=== PATIENT | female | born 2000 | race American Indian/Alaskan Native ===

== ENCOUNTER 2018-11-06 13:41 | Emergency (ER) | payer MEDICAID, OTHER ==
--- NOTE | 2018-11-06 13:50 | Emergency Department Report ---
Blank Doc - Documentation Documentation: 18 yo female reports that she miscarried 2 days ago and started period 2 days . denies any N?V?D. Denies urinary symptoms.Denies fever or chills ABD: nttp. his initial assessment diagnostic orders/clinical plan/treatment (s) is/Are subject change based on patient's health status, clinical progression and re- assessment by fellow clinical providers in the ED. Further treatment and work-up at subsequent clinical providers discetion. Patient/guardians urged not to elope from s their condition may be serious if not clinically assessed and managed. Inital order include:labd
[2018-11-06 14:14] LABS: Hematocrit 38.7 % (30.3-42.9); Hemoglobin 13.2 gm/dl (10.1-14.3); Mean Corpuscular HGB Conc 34 % (30-34); Mean Corpuscular Volume 87 fl (79-97); Platelet Count 338 K/mm3 (140-440); Red Blood Count 4.47 M/mm3 (3.65-5.03)
[2018-11-06 14:27] LABS: Bilirubin,Urine NEG (Negative); Blood,Urine LG (Negative); Color,Urine Yellow (Yellow); Mucus,Urine 1+ /HPF
[2018-11-06 14:30] LABS: WBC,Urine < 1.0 /HPF (0.0-6.0)
[2018-11-06 15:25] LABS: Total Cells Counted 100
[2018-11-06 15:26] LABS: Platelet Estimate Consistent w Auto; RBC Morphology Normal
--- NOTE | 2018-11-06 16:49 | Emergency Department Report ---
HPI - General Chief Complaint: Vaginal Bleeding Time Seen by Provider: 11/06/18 13:47 - HPI HPI: 18-year-old -Citizen Of [place] female presents to the emergency department with a complaint of a 2 day history of severe abdominal and pelvic cramping and a one- day history of vaginal bleeding. This may be the patient's menstrual cycle but she says it is atypical for her as she usually does not have any cramping or discomfort prior to the bleeding. Her last menstrual cycle prior to this was at the end of September. She says she is going through about 3-4 pads per day. She has not taken anything for her symptoms prior to arrival. She denies any fever, nausea, vomiting. ED Past Medical Hx - Past Medical History Previous Medical History?: No - Surgical History Past Surgical History?: No - Social History Smoking Status: Never Smoker Substance Use Type: None - Medications Home Medications: Home Medications Medication Instructions Recorded Confirmed Last Taken Type Ibuprofen [Motrin] 800 mg PO Q8HR PRN #30 tablet 11/07/15 Unknown Rx methOCARBAMOL [Robaxin TAB] 500 mg PO BID #14 tab 11/07/15 Unknown Rx Ibuprofen 600 mg PO Q8H PRN #20 tablet 11/06/18 Unknown Rx ED Review of Systems ROS: Stated complaint: MISCARRIAGE Other details as noted in HPI Comment: All other systems reviewed and negative Constitutional: denies: chills, fever Eyes: denies: eye pain, vision change ENT: denies: ear pain, throat pain Respiratory: denies: cough, shortness of breath Cardiovascular: denies: chest pain, palpitations Gastrointestinal: abdominal pain. denies: nausea, vomiting Genitourinary: abnormal menses. denies: dysuria, discharge Musculoskeletal: denies: back pain, arthralgia Skin: denies: rash, lesions Neurological: denies: headache, weakness Physical Exam - Physical Exam Vital Signs: Vital Signs 11/06/18 13:48 Temperature 98.4 F Pulse Rate 83 Respiratory 16 Rate Blood Pressure 128/88 O2 Sat by Pulse 98 Oximetry Physical Exam: GENERAL: The patient is well-developed well-nourished. HEENT: Normocephalic. Atraumatic. Patient has moist mucous membranes. EYES: Extraocular motions are intact. NECK: Supple. Trachea is midline. CHEST/LUNGS: There is no respiratory distress noted. ABDOMEN: There is no abdominal distention. SKIN: Skin is warm and dry. NEURO: The patient is awake, alert, and oriented. The patient is cooperative. The patient has no focal neurologic deficits. The patient has normal speech. MUSCULOSKELETAL: There is no tenderness or deformity. There is no limitation range of motion. There is no evidence of acute injury. ED Course Vital Signs 11/06/18 13:48 Temperature 98.4 F Pulse Rate 83 Respiratory 16 Rate Blood Pressure 128/88 O2 Sat by Pulse 98 Oximetry ED Medical Decision Making - Lab Data Result diagrams: 11/06/18 14:00 - Medical Decision Making Patient presents to the emergency department with a complaint of some painful pelvic and abdominal cramping that preceded some vaginal bleeding. Her last menstrual cycle was in the end of September and if this is her most recent menstrual cycle than it is a few days late. The quantitative and qualitative test were negative. Urinalysis did not show any signs of urinary tract infection. Vital signs stable throughout her ED course. Her hemoglobin is stable at 13.2. This appears most likely to be an atypical menstrual cycle. She appears safe for discharge home at this time. She has been given some ibuprofen for her cramping and multiple referrals for local [facility] group[facility]. She will return to the ER with any worsening of her symptoms or any acute distress. - Differential Diagnosis , fibroids, dysmenorrhea Critical Care Time: No Critical care attestation.: If time is entered above; I have spent that time in minutes in the direct care of this critically ill patient, excluding procedure time. ED Disposition Clinical Impression: Abnormal menstrual cycle, Pelvic cramping, Dysfunctional uterine bleeding Disposition: TO HOME OR SELFCARE Is pt being admited?: No Condition: Stable Instructions: Dysmenorrhea (ED) Additional Instructions: Please follow up with an [facility] regarding your pelvic cramping and vaginal bleeding. Return to the emergency Department with any worsening of your symptoms or any acute distress. Prescriptions: Ibuprofen 600 mg PO Q8H PRN #20 tablet PRN Reason: Pain , Severe (7-10) Referrals: [facility] [Provider Group] - 2-3 Days [facility] [Provider Group] - 2-3 Days [facility] [Provider Group] - 2-3 Days Forms: Work/School Release Form(ED) Time of Disposition: 17:33
[2018-11-06] MEDS ORDERED: IBUPROFEN PO ONE (17:02)
[2018-11-06 18:07] VITALS: BP 118/67
== END 2018-11-06 18:07 | disposition home or self-care (01) ==
LOC: ED 13:41
DX: N92.6 Irregular menstruation, unspecified (principal); N93.8 Other specified abnormal uterine and vaginal bleeding; R10.2 Pelvic and perineal pain
CPT/HCPCS: 36415; 81001; 84702; 84703; 85007; 85025